=== PATIENT | male | born 1995 | race Caucasian/White ===

== ENCOUNTER 2019-01-31 14:10 | Emergency (ER) | payer OTHER, SELFPAY ==
[2019-01-31 14:13] VITALS: BP 141/82; PULSE 75; RESP 18; TEMP 37; O2SAT 96
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
[2019-01-31] MEDS: Lidocaine/Epinephri/Tetracaine Topical Gel 3 ML TP (15:33)
[2019-01-31] MEDS: Normal Saline Flush 10 ML SYR IVP (15:33)
[2019-01-31] MEDS: Omnipaque 350 MG/ML 100 ML BTL IJ (16:07)
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
[2019-01-31] MEDS: Ibuprofen 600 MG TAB PO (17:02)
[2019-01-31 17:25] VITALS: BP 141/82; PULSE 75; RESP 18; TEMP 37; O2SAT 96
== END 2019-01-31 17:13 | disposition home or self-care (01) ==
PROVIDERS: Emergency Provider Student in an Organized Health Care Education/Training Program
DX: R22.1 Localized swelling, mass and lump, neck (principal); S01.81XA Laceration without foreign body of other part of head, initial encounter; V18.0XXA Pedal cycle driver injured in noncollision transport accident in nontraffic accident, initial encounter; Y93.55 Activity, bike riding; M54.2 Cervicalgia
CPT/HCPCS: 12011; 70498; 99285; 99283; J3490